=== PATIENT | female | born 1980 | race Caucasian/White ===

== ENCOUNTER 2018-07-07 17:17 | Emergency (ER) | payer BC ==
[2018-07-07] MEDS ORDERED: Sodium Chloride 0.9% 1,000 ML IV STA (17:45)
--- NOTE | 2018-07-07 18:11 | ED PDOC ---
Syncope/Near Syncope/Dizziness Time Seen by Provider: 07/07/18 17:31 Chief Complaint (Nursing): Syncope Chief Complaint (Provider): Syncope History Per: Patient History/Exam Limitations: no limitations Associated Symptoms Preceding Syncopal Episode: Lightheadedness Fall Associated With With Symptoms: Positive Injury Additional Complaint(s): 38 year old female with a past medical history of a HTN and CVA (currently on plavix), who presents to the emergency department after a syncopal episode just prior to arrival. Patient states that she has been drinking alcohol at her birthday alliance party today and reports she felt light headed and nausea just prior to fainting. She states she tried to sit down and drink some ice water to feel better but when she stood up, she felt extremely nauseous and does not remember what happened. As per her friends, she fell and hit her head on the doorknob on the way down. Patient currently reports headache, but no focal weakness except for some right hand paresthesia that she has had since her previous stroke. She denies nausea, blurry vision, chest pain or shortness of breath as of right now. PMD: in [place] Against Medical Advice - AMA Patient Left Against Medical Advice: The patient declines admission to the hospital and wishes to leave the Emergency Department. This action is against my medical advice. This decision was made with informed refusal. The patient was told that observation in the hospital is necessary. Explanation of the reasons why were discussed. The risks of leaving were explained to the patient and include, but are not limited to, worsening of known or currently unknown conditions, permanent disability and from undiagnosed or untreated conditions. The patient has the capacity to make this informed decision and understands my explanation of the current medical problem and risks of leaving. The patient voluntarily accepts these risks and signed an AMA form documenting our conversation. The patient was given the opportunity to ask questions and reconsider. The patient was encouraged to return to the Emergency Department at any time for further care. Past Medical History Reviewed: Historical Data, Nursing Documentation, Vital Signs Vital Signs: Last Vital Signs Temp 98.2 F 07/07/18 17:19 Pulse 90 07/07/18 17:19 Resp 16 07/07/18 17:19 BP 135/84 07/07/18 17:19 Pulse Ox 98 07/07/18 17:19 - Medical History PMH: CVA, HTN - Surgical History Other surgeries: meniscus surgery. indwelling loop monitor - Family History Family History: States: Hypertension - Social History Current smoker - smoking cessation education provided: No - Allergies Allergies/Adverse Reactions: Allergies Allergy/AdvReac Type Severity Reaction Status Date / Time No Known Allergies Allergy Verified 07/07/18 17:19 Review of Systems ROS Statement: Except As Marked, All Systems Reviewed And Found Negative Eyes: Negative for: Vision Change Cardiovascular: Positive for: Light Headedness. Negative for: Chest Pain Respiratory: Negative for: Shortness of Breath Gastrointestinal: Positive for: Nausea (not at the moment ) Neurological: Positive for: Headache, Other (right hand paresthesia) Physical Exam - Reviewed Nursing Documentation Reviewed: Yes Vital Signs Reviewed: Yes - Physical Exam Appears: Positive for: No Acute Distress (tired appearing) Head Exam: Negative for: NORMAL INSPECTION (hematomaon the left brow with a healing superficial abrasion) Skin: Positive for: Warm, Dry Eye Exam: Positive for: Normal appearance, EOMI, PERRL ENT: Positive for: Other (dry mucous membranes) Neck: Positive for: Painless ROM, Supple Cardiovascular/Chest: Positive for: Regular Rate, Rhythm. Negative for: Murmur Respiratory: Positive for: Normal Breath Sounds. Negative for: Respiratory Distress Gastrointestinal/Abdominal: Positive for: Soft. Negative for: Tenderness Back: Positive for: Normal Inspection. Negative for: Muscle Spasm Extremity: Positive for: Normal ROM. Negative for: Deformity Lymphatic: Negative for: Adenopathy Neurologic/Psych: Positive for: Alert, Oriented (x3), Other (normal speech). Negative for: Motor/Sensory Deficits - Laboratory Results Result Diagrams: 07/07/18 17:46 07/07/18 18:02 - ECG O2 Sat by Pulse Oximetry: 98 (RA) Pulse Ox Interpretation: Normal Medical Decision Making Medical Decision Making: Time: 1743 Impression: Syncope, head injury Differential diagnosis includes but is not limited to dehydration, alcohol intoxication, electrolyte abnormality, traumatic brain injury, arrhythmia Plan: --Ekg --Type and screen --Head CT without contrast --Alcohol serum --CMP --Magnesium --Phosphorous --Troponin I --ED urine --ED urine dipstick --CBC with differential --PTT --PT --Sodium chloride 1,000 ml --radiation monitor --IV insertion Time: [address] FINDINGS: BRAIN No acute intraparenchymal hemorrhage. No mass lesion. No CT evidence for acute territorial infarct. No midline shift or extra-axial collections. VENTRICLES: No hydrocephalus. There is cavum septum pellucidum noted; a normal variant finding. ORBITS: The orbits are unremarkable. SINUSES AND MASTOIDS: The paranasal sinuses and mastoid air cells are clear. BONES: No fracture. SOFT TISSUES: Unremarkable. IMPRESSION: No acute intracranial abnormality. Time: 2116 Labs with no emergent significantly abnormalities. Upon reevaluation, patient feels better. However, given history of HTN and CVA, provider advised observation for syncope. At this time, patient is still unsure if she wants to stay. 2199 Pt prefers to leave AMA. Scribe Attestation: Documented by Dominik Blake, acting as a scribe for Monserrat Batres MD. Provider Scribe Attestation: All medical record entries made by the Scribe were at my direction and personally dictated by me. I have reviewed the chart and agree that the record accurately reflects my personal performance of the history, physical exam, medical decision making, and the department course for this patient. I have also personally directed, reviewed, and agree with the discharge instructions and disposition. Disposition - Clinical Impression Clinical Impression: Syncope, Head injury - Disposition Disposition: Against Medical Advice Disposition Time: 22:00 Condition: UNKNOWN Additional Instructions: PLEASE RETURN TO ER IMMEDIATELY FOR FURTHER MANAGEMENT Instructions: Syncope (Fainting) (DC), Minor Head Injury (DC), Leaving Against Medical Advice
[2018-07-07 18:15] LABS: BASO % 0.4 % (0.0-2.0); EOS # 0.2 K/uL (0.0-0.7); HEMOGLOBIN 12.7 g/dL (12.0-16.0); LYMPH # 1.7 K/uL (1.0-4.3); LYMPH % 20.8 % (20.0-40.0); MEAN CELL VOLUME 72.6 fl (81.0-99.0); MEAN CORPUSCULAR HEMOGLOBIN 22.3 pg (27.0-31.0); MEAN CORPUSCULAR HGB CONC 30.7 g/dL (33.0-37.0); MEAN PLATELET VOLUME 8.3 fl (7.2-11.7); NEUT # 5.1 K/uL (1.8-7.0); NEUT % 62.8 % (50.0-75.0); RBC 5.72 Mil/uL (3.80-5.20); RED CELL DISTRIBUTION WIDTH 13.9 % (11.5-14.5); WHITE BLOOD COUNT 8.1 K/uL (4.8-10.8)
[2018-07-07 18:21] LABS: ALB/GLOB RATIO 1.2 (1.0-2.1); ALBUMIN 4.9 g/dL (3.5-5.0); BLOOD UREA NITROGEN 22 mg/dl (7-17); CALCIUM 9.8 mg/dL (8.4-10.2); GFR NON-AFRICAN AMERICAN > 60; PARTIAL THROMBOPLASTIN TIME 25.8 Seconds (25.6-37.1)
[2018-07-07 18:23] LABS: ALT/SGPT 29 U/L (9-52); AST/SGOT 40 U/L (14-36)
[2018-07-07 22:03] VITALS: BP 123/59; PULSE 82; RESP 17; TEMP 97.1
--- NOTE | 2018-07-08 10:16 | CT ---
Date of service: 07/07/2018 PROCEDURE: CT HEAD WITHOUT CONTRAST. HISTORY: syncope COMPARISON: None available. TECHNIQUE: Axial computed tomography images were obtained through the head/brain without intravenous contrast. Radiation dose: Total exam DLP = 916.29 mGy-cm. This CT exam was performed using one or more of the following dose reduction techniques: Automated exposure control, adjustment of the mA and/or kV according to patient size, and/or use of iterative reconstruction technique. FINDINGS: BRAIN: 3 mm small rounded hyperdensity left parasagittal frontal region (series 4, image 33). No mass effect or edema. No atrophy or chronic microvascular ischemic changes. VENTRICLES: No hydrocephalus. CALVARIUM: Unremarkable. PARANASAL SINUSES: Unremarkable as visualized. No significant inflammatory changes. MASTOID AIR CELLS: Unremarkable as visualized. No inflammatory changes. OTHER FINDINGS: None. IMPRESSION: 3 mm small rounded hyperdensity left parasagittal frontal region (series 4, image 33). Considerations include volume averaging artifact, microcalcification, cavernoma less likely focus of hemorrhage. Correlate clinically and follow-up CT (24 hr) or MRI may be considered in the proper clinical setting. Preliminary impression was provided by [facility]. Study marked for PA review. Discussed with JAKOB Miller on 07/08/18 at 10:10 a.m.
--- NOTE | 2018-07-08 11:57 | CARD ---
APPROVED REPORT Date of service: 07/07/2018 EKG Measurement Heart [id number] <Conclusion> Normal sinus rhythm Normal ECG
[2018-07-10 10:04] VITALS: O2SAT 98
== END 2018-07-07 22:03 | disposition left against medical advice (07) ==
LOC: H.ER 17:17
DX: R55 Syncope and collapse (principal); S09.90XA Unspecified injury of head, initial encounter; W19.XXXA Unspecified fall, initial encounter; Y92.89 Other specified places as the place of occurrence of the external cause; I10 Essential (primary) hypertension; Z86.73 Personal history of transient ischemic attack (TIA), and cerebral infarction without residual deficits
CPT/HCPCS: 70450; 80053; 81025; 82948; 83735; 84100; 84484; 84703; 85025; 85610; 85730; 86850; 86900; 93005; 99285; G0480; J7030